=== PATIENT | male | born 1980 | race Caucasian/White ===

== ENCOUNTER 2019-03-30 09:24 | Emergency (ER) | payer OTHER ==
[~2019-03-30] VITALS: Ht 188 cm; Wt 68.0 kg
[~2019-03-30 09:24] MED LIST: BASAGLAR K100 UNIT/1 SC
[2019-03-30 10:07] LABS: BASOPHILS ABSOLUTE AUTO 0.05 K/mm3 (0.00-0.23); BASOPHILS PERCENT AUTO 1 % (0-2); EOSINOPHILS PERCENT AUTO 0 % (0-6); Hematocrit 47.7 % (37.0-53.0); Hemoglobin 16.6 g/dL (13.5-17.5); IMMATURE GRAN ABSOLUTE AUTO 0.04 K/mm3 (0.00-0.10); IMMATURE GRAN PERCENT AUTO 0 % (0-1); LYMPHOCYTES ABSOLUTE AUTO 1.33 K/mm3 (0.84-5.20); LYMPHOCYTES PERCENT AUTO 12 % (21-46); MONOCYTES ABSOLUTE AUTO 0.55 K/mm3 (0.16-1.47); MONOCYTES PERCENT AUTO 5 % (4-13); Mean Corpuscular HGB 30.1 pg (26.0-34.0); Mean Corpuscular HGB Conc 34.8 g/dL (31.5-36.5); Mean Corpuscular Volume 87 fL (80-100); Mean Platelet Volume 11.1 fL (9.1-12.4); NEUTROPHILS ABSOLUTE AUTO 8.79 K/mm3 (1.96-9.15); NEUTROPHILS PERCENT AUTO 82 % (41-73); Platelet Count 329 K/mm3 (150-400); RDW Coefficient Variation 11.9 % (11.7-14.2); RDW Standard Deviation 38.2 fL (35.1-46.3); Red Blood Cell Count 5.51 M/mm3 (4.30-5.90); White Blood Cell Count 10.76 K/mm3 (4.00-11.30)
[2019-03-30 10:22] LABS: Alanine Aminotransfer (ALT/SGP 37 U/L (12-78); Albumin, Blood 3.7 g/dL (3.4-5.0); Albumin/Globulin Ratio 0.9 (0.8-1.8); Alk Phos 113 U/L (50-136); Anion Gap 16 mmol/L (6-16); Aspartate Aminotrans (AST/SGOT 13 U/L (12-37); Bilirubin, Total 0.7 mg/dL (0.1-1.0); Blood Urea Nitrogen 23 mg/dL (8-24); Bun/Creatinine Ratio 29.3 (12.0-20.0); CO2, Blood 23 mmol/L (21-32); Chloride, Blood 89 mmol/L (98-108); Creatinine, Blood 0.79 mg/dL (0.60-1.20); Globulin, Blood 4.1 g/dL (2.2-4.0); Glomerular Filtration Rate >60 (60-); Glucose, Blood 292 mg/dL (70-99); Potassium, Blood 4.4 mmol/L (3.5-5.5); Sodium, Blood 128 mmol/L (136-145); Total Protein, Blood 7.8 g/dL (6.4-8.2)
[2019-03-30 11:23] LABS: Base Excess Venous 1.4 mmol/L; PCO2 Venous 42.6 mmHg (38-42); PO2 Venous 50.9 mmHg (38-42)
[2019-03-30] MEDS ORDERED: PROM25 PO (11:49)
[2019-03-30 12:34] LABS: Source, Urine Clean Catch
[2019-03-30 12:42] LABS: Bilirubin, Urine Neg (Neg); Blood, Urine Neg (Neg); Glucose Qualitative, Urine 4+ (Neg); Ketones, Urine 4+ (Neg); Leukocyte Esterase, Urine Neg (Neg); Nitrite, Urine Neg (Neg); Protein, Urine 1+ (Neg); Specific Gravity, Urine 1.025 (1.003-1.022); Urobilinogen, Urine NORM (Normal)
[2019-03-30 12:56] LABS: Appearance, Urine Clear (Clear); Color, Urine Yellow (P-Yellow)
== END 2019-03-30 15:35 | disposition home or self-care (01) ==
LOC: ER 09:24
PROVIDERS: Emergency Medicine; Physician Assistant
DX: R11.2 Nausea with vomiting, unspecified (principal); E11.9 Type 2 diabetes mellitus without complications; F17.200 Nicotine dependence, unspecified, uncomplicated; Z79.4 Long term (current) use of insulin
CPT/HCPCS: 36415; 80053; 82803; 82947; 83690; 85025; 96361; 96374; 96375; 99283-25; J0780; J1630; J2405; J2550; J7030

== ENCOUNTER 2020-10-24 15:12 | Emergency (ER) | payer OTHER ==
[~2020-10-24] VITALS: Ht 190.5 cm; Wt 81.7 kg
[~2020-10-24 15:12] MED LIST changes: +PROM25 PO
[2020-10-24 16:36] LABS: BASOPHILS ABSOLUTE AUTO 0.05 K/mm3 (0.00-0.23); BASOPHILS PERCENT AUTO 1 % (0-2); EOSINOPHILS ABSOLUTE AUTO 0.01 K/mm3 (0.00-0.68); EOSINOPHILS PERCENT AUTO 0 % (0-6); Hematocrit 42.7 % (37.0-53.0); Hemoglobin 14.4 g/dL (13.5-17.5); IMMATURE GRAN ABSOLUTE AUTO 0.02 K/mm3 (0.00-0.10); IMMATURE GRAN PERCENT AUTO 0 % (0-1); LYMPHOCYTES ABSOLUTE AUTO 1.44 K/mm3 (0.84-5.20); LYMPHOCYTES PERCENT AUTO 13 % (21-46); MONOCYTES ABSOLUTE AUTO 0.34 K/mm3 (0.16-1.47); MONOCYTES PERCENT AUTO 3 % (4-13); Mean Corpuscular HGB 29.6 pg (26.0-34.0); Mean Corpuscular HGB Conc 33.7 g/dL (31.5-36.5); Mean Corpuscular Volume 88 fL (80-100); Mean Platelet Volume 11.8 fL (9.1-12.4); NEUTROPHILS ABSOLUTE AUTO 8.85 K/mm3 (1.96-9.15); NEUTROPHILS PERCENT AUTO 83 % (41-73); Platelet Count 314 K/mm3 (150-400); RDW Coefficient Variation 12.1 % (11.7-14.2); RDW Standard Deviation 39.2 fL (35.1-46.3); Red Blood Cell Count 4.87 M/mm3 (4.30-5.90); White Blood Cell Count 10.71 K/mm3 (4.00-11.30)
[2020-10-24 16:50] LABS: Alanine Aminotransfer (ALT/SGP 31 U/L (12-78); Albumin, Blood 3.5 g/dL (3.4-5.0); Albumin/Globulin Ratio 0.9 (0.8-1.8); Alk Phos 92 U/L (50-136); Anion Gap 6 mmol/L (6-16); Aspartate Aminotrans (AST/SGOT 22 U/L (12-37); Bilirubin, Total 0.6 mg/dL (0.1-1.0); Blood Urea Nitrogen 17 mg/dL (8-24); Bun/Creatinine Ratio 16.7 (12.0-20.0); CO2, Blood 27 mmol/L (21-32); Calcium, Blood 8.6 mg/dL (8.5-10.1); Chloride, Blood 107 mmol/L (98-108); Creatinine, Blood 1.02 mg/dL (0.60-1.20); Globulin, Blood 3.9 g/dL (2.2-4.0); Glomerular Filtration Rate >60 (60-); Glucose, Blood 205 mg/dL (70-99); Potassium, Blood 3.7 mmol/L (3.5-5.5); Sodium, Blood 140 mmol/L (136-145); Total Protein, Blood 7.4 g/dL (6.4-8.2)
[2020-10-24] MEDS ORDERED: DICY20 PO (19:18)
[2020-10-24] MEDS ORDERED: ONDA4ODT MM (19:18)
== END 2020-10-24 20:51 | disposition home or self-care (01) ==
LOC: ER 15:12
PROVIDERS: Physician Assistant
DX: K52.9 Noninfective gastroenteritis and colitis, unspecified (principal); E11.9 Type 2 diabetes mellitus without complications; F17.200 Nicotine dependence, unspecified, uncomplicated; Z79.4 Long term (current) use of insulin; Z88.8 Allergy status to other drugs, medicaments and biological substances
CPT/HCPCS: 74177; 80053; 82947; 83690; 85025; 96374-59; 96375; 99284-25; A9270; J0780; J1200; J2405; J3010; J7030; Q9967

== ENCOUNTER → 2020-12-19 | Outpatient (CLI) | payer OTHER ==
[~2020-12-19] MED LIST changes: +DICY20 PO; +ONDA4ODT MM
[2020-12-19 11:14] LABS: BASOPHILS ABSOLUTE AUTO 0.06 K/mm3 (0.00-0.23); BASOPHILS PERCENT AUTO 1 % (0-2); EOSINOPHILS ABSOLUTE AUTO 0.05 K/mm3 (0.00-0.68); EOSINOPHILS PERCENT AUTO 1 % (0-6); Hematocrit 50.4 % (37.0-53.0); Hemoglobin 17.6 g/dL (13.5-17.5); IMMATURE GRAN ABSOLUTE AUTO 0.02 K/mm3 (0.00-0.10); IMMATURE GRAN PERCENT AUTO 0 % (0-1); LYMPHOCYTES ABSOLUTE AUTO 2.31 K/mm3 (0.84-5.20); LYMPHOCYTES PERCENT AUTO 24 % (21-46); MONOCYTES ABSOLUTE AUTO 0.76 K/mm3 (0.16-1.47); MONOCYTES PERCENT AUTO 8 % (4-13); Mean Corpuscular HGB 30.4 pg (26.0-34.0); Mean Corpuscular HGB Conc 34.9 g/dL (31.5-36.5); Mean Corpuscular Volume 87 fL (80-100); Mean Platelet Volume 10.6 fL (9.1-12.4); NEUTROPHILS PERCENT AUTO 67 % (41-73); Platelet Count 371 K/mm3 (150-400); RDW Coefficient Variation 12.6 % (11.7-14.2); RDW Standard Deviation 39.9 fL (35.1-46.3); Red Blood Cell Count 5.78 M/mm3 (4.30-5.90)
[2020-12-19 11:24] LABS: Alanine Aminotransfer (ALT/SGP 24 U/L (12-78); Albumin, Blood 3.6 g/dL (3.4-5.0); Albumin/Globulin Ratio 0.9 (0.8-1.8); Alk Phos 89 U/L (40-126); Anion Gap 7 mmol/L (6-16); Aspartate Aminotrans (AST/SGOT 11 U/L (12-37); Bilirubin, Total 0.7 mg/dL (0.1-1.0); Blood Urea Nitrogen 12 mg/dL (8-24); Bun/Creatinine Ratio 9.8 (12.0-20.0); CO2, Blood 31 mmol/L (21-32); Calcium, Blood 8.7 mg/dL (8.5-10.1); Chloride, Blood 95 mmol/L (98-108); Creatinine, Blood 1.23 mg/dL (0.60-1.20); Glomerular Filtration Rate >60 (60-); Glucose, Blood 161 mg/dL (70-99); Potassium, Blood 4.8 mmol/L (3.5-5.5); Sodium, Blood 133 mmol/L (136-145); Total Protein, Blood 7.6 g/dL (6.4-8.2)
== END | disposition home or self-care (01) ==
LOC: LAB SHORT 11:09 → LAB 11:09
PROVIDERS: Physician Assistant Medical
DX: R11.2 Nausea with vomiting, unspecified (principal)
CPT/HCPCS: 80053; 83690; 85025

== ENCOUNTER 2021-02-04 13:26 | Emergency (ER) | payer OTHER ==
[~2021-02-04] VITALS: Ht 190.5 cm; Wt 81.7 kg
[~2021-02-04 13:26] MED LIST changes: -ASPI81CH PO; -FAMO20; -METO10 PO; -SEMGLEE PE100 UNIT/1; -Simvastatin20 MG PO
[2021-02-04] MEDS ORDERED: SEMGLEE PE100 UNIT/1 (13:53)
[2021-02-04] MEDS ORDERED: Simvastatin20 MG PO (13:54)
[2021-02-04] MEDS ORDERED: ASPI81CH PO (13:54)
[2021-02-04] MEDS ORDERED: FAMO20 (13:55)
[2021-02-04] MEDS ORDERED: METO10 PO (16:04)
[2021-02-04] MEDS ORDERED: ONDA4ODT MM (16:04)
== END 2021-02-04 16:48 | disposition home or self-care (01) ==
LOC: ER 13:26
DX: R11.2 Nausea with vomiting, unspecified (principal); E11.9 Type 2 diabetes mellitus without complications; K21.9 Gastro-esophageal reflux disease without esophagitis; F17.200 Nicotine dependence, unspecified, uncomplicated; Z79.899 Other long term (current) drug therapy; Z79.4 Long term (current) use of insulin; Z79.82 Long term (current) use of aspirin
CPT/HCPCS: 82947; 96374; 99285-25; J2765

== ENCOUNTER → 2021-02-04 | Outpatient (CLI) | payer OTHER ==
[~2021-02-04] MED LIST changes: +ASPI81CH PO; +FAMO20; +METO10 PO; +SEMGLEE PE100 UNIT/1; +Simvastatin20 MG PO
[2021-02-04 12:38] LABS: BASOPHILS ABSOLUTE AUTO 0.06 K/mm3 (0.00-0.23); BASOPHILS PERCENT AUTO 0 % (0-2); EOSINOPHILS ABSOLUTE AUTO 0.02 K/mm3 (0.00-0.68); EOSINOPHILS PERCENT AUTO 0 % (0-6); Hemoglobin 16.6 g/dL (13.5-17.5); IMMATURE GRAN ABSOLUTE AUTO 0.16 K/mm3 (0.00-0.10); IMMATURE GRAN PERCENT AUTO 1 % (0-1); LYMPHOCYTES ABSOLUTE AUTO 1.33 K/mm3 (0.84-5.20); LYMPHOCYTES PERCENT AUTO 6 % (21-46); MONOCYTES ABSOLUTE AUTO 1.14 K/mm3 (0.16-1.47); MONOCYTES PERCENT AUTO 5 % (4-13); Mean Corpuscular HGB 30.9 pg (26.0-34.0); Mean Corpuscular HGB Conc 35.3 g/dL (31.5-36.5); Mean Corpuscular Volume 87 fL (80-100); Mean Platelet Volume 11.3 fL (9.1-12.4); NEUTROPHILS ABSOLUTE AUTO 20.09 K/mm3 (1.96-9.15); NEUTROPHILS PERCENT AUTO 88 % (41-73); Platelet Count 338 K/mm3 (150-400); RDW Coefficient Variation 12.9 % (11.7-14.2); Red Blood Cell Count 5.38 M/mm3 (4.30-5.90)
[2021-02-04 13:05] LABS: Alanine Aminotransfer (ALT/SGP 42 U/L (12-78); Albumin, Blood 4.3 g/dL (3.4-5.0); Albumin/Globulin Ratio 1.2 (0.8-1.8); Alk Phos 106 U/L (40-126); Amylase, Blood 38 U/L (25-115); Anion Gap 13 mmol/L (6-16); Aspartate Aminotrans (AST/SGOT 13 U/L (12-37); Bilirubin, Total 0.5 mg/dL (0.1-1.0); Blood Urea Nitrogen 19 mg/dL (8-24); Bun/Creatinine Ratio 17.3 (12.0-20.0); CO2, Blood 31 mmol/L (21-32); Calcium, Blood 9.9 mg/dL (8.5-10.1); Chloride, Blood 99 mmol/L (98-108); Globulin, Blood 3.7 g/dL (2.2-4.0); Glomerular Filtration Rate >60 (60-); Glucose, Blood 293 mg/dL (70-99); Potassium, Blood 3.5 mmol/L (3.5-5.5); Sodium, Blood 143 mmol/L (136-145)
== END ==
LOC: LAB SHORT 12:34
PROVIDERS: General Practice
DX: E11.9 Type 2 diabetes mellitus without complications (principal); R11.2 Nausea with vomiting, unspecified; Z79.4 Long term (current) use of insulin
CPT/HCPCS: 80053; 82150; 85025

== ENCOUNTER 2022-11-22 11:18 | Day surgery (SDC) | payer OTHER ==
[~2022-11-22] VITALS: Ht 190.5 cm; Wt 77.8 kg
[~2022-11-22 11:18] MED LIST changes: +ASPI81CH PO; +FAMO20; +METO10 PO; +SEMGLEE PE100 UNIT/1; +Simvastatin20 MG PO
[2022-11-22 13:47] VITALS: BP 123/90
== END 2022-11-22 13:50 | disposition home or self-care (01) ==
LOC: ORSCSDS 11:18
PROVIDERS: Internal Medicine Gastroenterology
PROC: 0DB78ZX Excision of Stomach, Pylorus, Via Natural or Artificial Opening Endoscopic, Diagnostic (ICD-10-PCS; principal; 2022-11-22 13:00)
PROC: 0DBN8ZX Excision of Sigmoid Colon, Via Natural or Artificial Opening Endoscopic, Diagnostic (ICD-10-PCS; principal; 2022-11-22 13:00)
PROC: 0DB98ZX Excision of Duodenum, Via Natural or Artificial Opening Endoscopic, Diagnostic (ICD-10-PCS; principal; 2022-11-22 13:00)
DX: K62.5 Hemorrhage of anus and rectum (principal); K59.00 Constipation, unspecified; R10.13 Epigastric pain; D12.5 Benign neoplasm of sigmoid colon; K64.4 Residual hemorrhoidal skin tags; K29.70 Gastritis, unspecified, without bleeding; B96.81 Helicobacter pylori [H. pylori] as the cause of diseases classified elsewhere; E10.9 Type 1 diabetes mellitus without complications; K21.9 Gastro-esophageal reflux disease without esophagitis; F17.210 Nicotine dependence, cigarettes, uncomplicated; Z79.4 Long term (current) use of insulin; Z79.899 Other long term (current) drug therapy
CPT/HCPCS: 82947; 88305; 88342; J2250; J2704; J7120

== ENCOUNTER 2023-01-30 11:43 | Inpatient (IN) | payer OTHER ==
[~2023-01-30] VITALS: Ht 165.1 cm; Wt 72.6 kg
[2023-01-30] VITALS (12 sets, daily range): BP systolic 106–133; BP diastolic 61–77
[2023-01-30 12:09] LABS: Base Excess Venous -8.2 mmol/L; Bicarbonate Venous 18.4 mmol/L (24.0-30.0); PCO2 Venous 35.5 mmHg (38-42); pH Blood Venous 7.31 (7.34-7.37)
[2023-01-30 12:28] LABS: BASOPHILS PERCENT MAN 0 % (0-2); EOSINOPHILS PERCENT MAN 1 % (0-6); LYMPHOCYTES PERCENT MAN 2 % (21-46); MONOCYTES PERCENT MAN 3 % (4-13); SEG NEUTROPHILS PERCENT MAN 94 % (41-73); TOTAL CELLS COUNTED 100
[2023-01-30 13:13] LABS: BASOPHILS PERCENT AUTO 1 % (0-2); Hematocrit 42.8 % (37.0-53.0); Hemoglobin 14.6 g/dL (13.5-17.5); LYMPHOCYTES ABSOLUTE AUTO 0.72 K/mm3 (0.84-5.20); LYMPHOCYTES ABSOLUTE MAN 0.41 K/mm3 (0.84-5.20); LYMPHOCYTES PERCENT AUTO 4 % (21-46); MONOCYTES ABSOLUTE AUTO 0.69 K/mm3 (0.16-1.47); MONOCYTES ABSOLUTE MAN 0.61 K/mm3 (0.16-1.47); MONOCYTES PERCENT AUTO 3 % (4-13); Mean Corpuscular HGB 30.7 pg (26.0-34.0); Mean Corpuscular HGB Conc 34.1 g/dL (31.5-36.5); Mean Corpuscular Volume 90 fL (80-100); Mean Platelet Volume 11.8 fL (9.1-12.4); NEUTROPHILS ABSOLUTE MAN 19.39 K/mm3 (1.96-9.15); Platelet Count 365 K/mm3 (150-400); RDW Coefficient Variation 12.3 % (11.7-14.2); RDW Standard Deviation 41.2 fL (35.1-46.3); Red Blood Cell Count 4.75 M/mm3 (4.30-5.90); White Blood Cell Count 20.63 K/mm3 (4.00-11.30)
[2023-01-30 13:14] LABS: EOSINOPHILS ABSOLUTE AUTO 10.11 K/mm3 (0.00-0.68); EOSINOPHILS PERCENT AUTO 49 % (0-6); IMMATURE GRAN ABSOLUTE AUTO 0.03 K/mm3 (0.00-0.10); IMMATURE GRAN PERCENT AUTO 0 % (0-1); NEUTROPHILS ABSOLUTE AUTO 8.98 K/mm3 (1.96-9.15); NEUTROPHILS PERCENT AUTO 44 % (41-73)
[2023-01-30 13:20] LABS: U Amphetamine Screen DETECTED; U Barbituate Screen Not Detected; U Benzodiazapine Screen Not Detected; U Buprenorphine Screen Not Detected; U Cannabinoids Screen Not Detected; U Cocaine Screen Not Detected; U Methadone Screen Not Detected; U Methamphetamine Screen DETECTED; U Opiates Screen Not Detected; U Oxycodone Screen Not Detected; U Phencyclidine Screen Not Detected
[2023-01-30 13:45] LABS: Albumin, Blood 3.6 g/dL (3.4-5.0); Albumin/Globulin Ratio 0.9 (0.8-1.8); Beta-hydroxybutyrate 82.5 mg/dL (0.2-2.8); Bilirubin, Total 0.7 mg/dL (0.1-1.0); Bun/Creatinine Ratio 30.9 (12.0-20.0); Calcium, Blood 9.1 mg/dL (8.5-10.1); Creatinine, Blood 1.23 mg/dL (0.60-1.20); Globulin, Blood 3.8 g/dL (2.2-4.0); Potassium, Blood 5.8 mmol/L (3.5-5.5); Total Protein, Blood 7.4 g/dL (6.4-8.2)
--- NOTE | 2023-01-30 16:08 | NUR ---
ARRIVAL TO ICU PT BROUGHT TO ICU 14 AT THIS TIME. HE IS RECEIVING INSULIN 3UNITS/HR. PT SOMNOLENT BUT WAKENS TO VERBAL STIMULI. HE IS ABLE TO NOD/SHAKE HEAD, MINIMALLY ANSWER QUESTIONS, AND FOLLOW SIMPLE COMMANDS. PT APPROVES MOTHER LASHA TO BE AT BEDSIDE AND TO OBTAIN INFORMATION FROM HER. PT'S MOTHER, LASHA, STS PT HAS NEVER BEEN ADMITTED FOR DKA. HE WAS DIAGNOSED WITH TYPE 2 DIABETES AT AGE 32 AND HAS BEEN USING INSULIN SINCE. SHE IS UNAWARE OF HIS INSULIN DOSING BUT STS HE HAS BEEN SEEING AN LACE AND TEXTILES RESTORER AND THEY RECENTLY MADE CHANGES TO HIS INSULIN DOSING IN THE LAST TWO MONTHS. SHE ALSO STS HE HAS RECENTLY STARTED USING A CONTINUOUS GLUCOSE MONITOR AND THERE HAS BEEN PRIOR DISCUSSION REGARDING AN INSULIN PUMP. PT HAS NOT VOIDED. BLADDER SCAN SHOWS 803ML. PT WAKENS AND STANDS AT BEDSIDE, VOIDS 950ML PALE YELLOW URINE. SINUS TACH ON MONITOR WITH RATE IN 110S-120S WHILE SLEEPING, 130S-140S WHILE STANDING. BP STABLE. BED ALARM ON, CALL LIGHT WITHIN REACH.
[2023-01-30 16:22] LABS: Albumin, Blood 3.5 g/dL (3.4-5.0); Anion Gap 23 mmol/L (6-16); Blood Urea Nitrogen 39 mg/dL (8-24); CO2, Blood 15 mmol/L (21-32); Calcium, Blood 8.5 mg/dL (8.5-10.1); Chloride, Blood 97 mmol/L (98-108); Creatinine, Blood 1.26 mg/dL (0.60-1.20); Glomerular Filtration Rate 73 (60-); Glucose, Blood 614 mg/dL (70-99); Phosphorus, Blood 6.5 mg/dL (2.5-4.9); Potassium, Blood 5.8 mmol/L (3.5-5.5); Sodium, Blood 135 mmol/L (136-145)
[2023-01-30 16:22] LABS: Glucose, Blood 626 mg/dL (70-99)
[2023-01-30] MEDS ORDERED: INSULIN LI100 UNIT/6 SC (16:33)
[2023-01-30 17:40] LABS: Glucose, Blood 586 mg/dL (70-99)
[2023-01-30 18:38] LABS: Glucose, Blood 491 mg/dL (70-99)
[2023-01-30 20:11] LABS: Albumin, Blood 3.1 g/dL (3.4-5.0); Anion Gap 12 mmol/L (6-16); Blood Urea Nitrogen 41 mg/dL (8-24); Bun/Creatinine Ratio 28.3 (12.0-20.0); CO2, Blood 20 mmol/L (21-32); Calcium, Blood 8.1 mg/dL (8.5-10.1); Chloride, Blood 106 mmol/L (98-108); Creatinine, Blood 1.45 mg/dL (0.60-1.20); Glomerular Filtration Rate 62 (60-); Glucose, Blood 424 mg/dL (70-99); Phosphorus, Blood 4.5 mg/dL (2.5-4.9); Potassium, Blood 4.7 mmol/L (3.5-5.5); Sodium, Blood 138 mmol/L (136-145)
[2023-01-30 23:51] LABS: Anion Gap 6 mmol/L (6-16); Blood Urea Nitrogen 37 mg/dL (8-24); CO2, Blood 24 mmol/L (21-32); Calcium, Blood 7.9 mg/dL (8.5-10.1); Chloride, Blood 110 mmol/L (98-108); Creatinine, Blood 1.32 mg/dL (0.60-1.20); Glomerular Filtration Rate 69 (60-); Glucose, Blood 306 mg/dL (70-99); Phosphorus, Blood 3.7 mg/dL (2.5-4.9); Potassium, Blood 4.4 mmol/L (3.5-5.5); Sodium, Blood 140 mmol/L (136-145)
[2023-01-31] VITALS (13 sets, daily range): BP systolic 91–161; BP diastolic 54–97
[2023-01-31 03:20] LABS: BASOPHILS ABSOLUTE AUTO 0.08 K/mm3 (0.00-0.23); BASOPHILS PERCENT AUTO 0 % (0-2); EOSINOPHILS PERCENT AUTO 0 % (0-6); Hemoglobin 13.5 g/dL (13.5-17.5); IMMATURE GRAN PERCENT AUTO 1 % (0-1); LYMPHOCYTES ABSOLUTE AUTO 3.06 K/mm3 (0.84-5.20); LYMPHOCYTES PERCENT AUTO 15 % (21-46); MONOCYTES ABSOLUTE AUTO 2.53 K/mm3 (0.16-1.47); MONOCYTES PERCENT AUTO 12 % (4-13); Mean Corpuscular HGB 30.1 pg (26.0-34.0); Mean Corpuscular HGB Conc 33.8 g/dL (31.5-36.5); Mean Corpuscular Volume 89 fL (80-100); Mean Platelet Volume 11.2 fL (9.1-12.4); NEUTROPHILS ABSOLUTE AUTO 14.56 K/mm3 (1.96-9.15); NEUTROPHILS PERCENT AUTO 72 % (41-73); Platelet Count 335 K/mm3 (150-400); RDW Coefficient Variation 12.6 % (11.7-14.2); RDW Standard Deviation 41.3 fL (35.1-46.3); Red Blood Cell Count 4.49 M/mm3 (4.30-5.90); White Blood Cell Count 20.33 K/mm3 (4.00-11.30)
[2023-01-31 03:37] LABS: International Normalized Ratio 1.07; Prothrombin Time Results 11.2 Sec (9.7-11.5)
[2023-01-31 03:51] LABS: Albumin/Globulin Ratio 0.8 (0.8-1.8); Bilirubin, Total 0.4 mg/dL (0.1-1.0); Bun/Creatinine Ratio 28.8 (12.0-20.0); Calcium, Blood 7.7 mg/dL (8.5-10.1); Creatinine, Blood 1.18 mg/dL (0.60-1.20); Globulin, Blood 3.8 g/dL (2.2-4.0); Magnesium, Blood 2.2 mg/dL (1.6-2.4); Potassium, Blood 4.8 mmol/L (3.5-5.5); Total Protein, Blood 6.8 g/dL (6.4-8.2)
--- NOTE | 2023-01-31 06:04 | NUR ---
SHIFT SUMMARY: NO ACUTE CHANGES OVERNIGHT. PT OFF OF INSULIN DRIP @ 0400 AND TRANSITIONED TO SUBCUTANEOUS INSULIN; CBG AROUND 160'S. PT HAS NOT BEEN N/V FOR THE WHOLE NIGHT BUT AT 0600 PT REPORTED NAUSEA AND MEDICATED WITH ZOFRAN PER EMAR. PT HAS BEEN SLEEING FOR THE MAJORITY OF THE SHIFT BUT WAKES TO VERBAL STIMULI, FOLLOWS SIMPLE DIRECTIONS AND IS ANSWERING SOME QUESTIONS; AT THIS TIME PT A&O X 3, HAS SOME DIFFICULTY RECALLING THE SITUATION THAT LEAD TO ADMISSION BUT ONCE TOLD SOME OF THE STORY THE PT STARTS TO REMEMBER. PT ON RA, SPO2 99< AND DENIES SOB. SR-ST WITH HR 90-110, SBP 120-140'S; CONTINUOUS CATERING SOUS CHEF IN PLACE. PT DIET ADVANCED TO ADA DIET BUT PT HAS DECLINED FOOD AT THIS TIME. PT USING URINAL IN BED INDEPENDENTLY; VOIDED ONCE THIS SHIFT WITH 600 ML OUTPUT. PT REPOSITIONING IN BED INDEPENDENTLY THROUGHOUT THE SHIFT. PIV TO BILATERALLY AC'S THAT ARE SALINE LOCKED. WILL REPORT OFF TO ONCOMING RN.
[2023-01-31 08:31] LABS: Albumin, Blood 3.2 g/dL (3.4-5.0); Anion Gap 8 mmol/L (6-16); Blood Urea Nitrogen 31 mg/dL (8-24); Bun/Creatinine Ratio 27.4 (12.0-20.0); CO2, Blood 26 mmol/L (21-32); Chloride, Blood 108 mmol/L (98-108); Creatinine, Blood 1.13 mg/dL (0.60-1.20); Glomerular Filtration Rate 83 (60-); Glucose, Blood 152 mg/dL (70-99); Phosphorus, Blood 3.8 mg/dL (2.5-4.9); Potassium, Blood 4.4 mmol/L (3.5-5.5); Sodium, Blood 142 mmol/L (136-145)
[2023-01-31 12:13] LABS: Albumin, Blood 3.3 g/dL (3.4-5.0); Anion Gap 9 mmol/L (6-16); Blood Urea Nitrogen 31 mg/dL (8-24); Bun/Creatinine Ratio 28.7 (12.0-20.0); CO2, Blood 24 mmol/L (21-32); Calcium, Blood 8.2 mg/dL (8.5-10.1); Chloride, Blood 105 mmol/L (98-108); Creatinine, Blood 1.08 mg/dL (0.60-1.20); Glomerular Filtration Rate 88 (60-); Glucose, Blood 273 mg/dL (70-99); Phosphorus, Blood 3.3 mg/dL (2.5-4.9); Potassium, Blood 4.9 mmol/L (3.5-5.5); Sodium, Blood 138 mmol/L (136-145)
--- NOTE | 2023-01-31 16:00 | NUR ---
TRANSFER TO MEDICAL PT MEDICAL W/ TELEMETRY STATUS. SLEEPING MAJORITY OF SHIFT. PT WAKES TO VERBAL STIMULI, ANSWERS Qs APPROPRIATELY BUT KEEPS EYES CLOSED WHILE ANSWERING Qs. PT SOMETIMES OPENS EYES SPONTANEOUSLY. PT VSS. SPO2 > 92% ON RA. MONITOR SHOWING SR-ST, HR 80s-110s. PT DENIES PAIN/DISCOMFORT BUT REPORTING NAUSEA T/O SHIFT & EPISODE OF EMESIS THIS AM. PT BEING MEDICATED W/ PRN IV ZOFRAN & PO PHENERGAN PER EMAR W/ NO FURTHER EMESIS & REPORT OF IMPROVEMENT IN NAUSEA. PT DRINKING WATER BUT REFUSING MEALS. CBGs MD FRANCOIS W/ CHANGE FROM S INSULIN COVERAGE TO JASON. PT 1 PERSON ASSIST. REPORT CALLED TO ACCEPTING MEDICAL FLOOR RN. PT TAKEN TO RM 364 BY PCT IN WHEELCHAIR @ APPROX 1600.
--- NOTE | 2023-01-31 16:57 | NUR ---
PT AOX3 STILL VERY NAUSEATED, PT WAS TREATED PER EMAR. PT SLEEPING IN BED AT THIS TIME. ABLE TO BE AROUSED WHEN SPOKE TO. CALL LIGHT IS WITHIN REACH. TELE IS ST @ 101 PER CALKER. WILL CONTINUE TO MONITOR.
[2023-02-01 04:08] VITALS: BP 155/93
[2023-02-01 05:03] LABS: BASOPHILS ABSOLUTE AUTO 0.09 K/mm3 (0.00-0.23); BASOPHILS PERCENT AUTO 1 % (0-2); EOSINOPHILS PERCENT AUTO 0 % (0-6); Hematocrit 40.4 % (37.0-53.0); Hemoglobin 13.8 g/dL (13.5-17.5); IMMATURE GRAN ABSOLUTE AUTO 0.05 K/mm3 (0.00-0.10); IMMATURE GRAN PERCENT AUTO 0 % (0-1); LYMPHOCYTES ABSOLUTE AUTO 2.23 K/mm3 (0.84-5.20); LYMPHOCYTES PERCENT AUTO 16 % (21-46); MONOCYTES ABSOLUTE AUTO 1.11 K/mm3 (0.16-1.47); MONOCYTES PERCENT AUTO 8 % (4-13); Mean Corpuscular HGB 30.5 pg (26.0-34.0); Mean Corpuscular HGB Conc 34.2 g/dL (31.5-36.5); Mean Corpuscular Volume 89 fL (80-100); Mean Platelet Volume 11.1 fL (9.1-12.4); NEUTROPHILS ABSOLUTE AUTO 10.73 K/mm3 (1.96-9.15); NEUTROPHILS PERCENT AUTO 76 % (41-73); Platelet Count 280 K/mm3 (150-400); RDW Coefficient Variation 12.3 % (11.7-14.2); RDW Standard Deviation 40.6 fL (35.1-46.3); Red Blood Cell Count 4.53 M/mm3 (4.30-5.90); White Blood Cell Count 14.21 K/mm3 (4.00-11.30)
[2023-02-01 05:50] LABS: Albumin, Blood 3.2 g/dL (3.4-5.0); Anion Gap 4 mmol/L (6-16); Blood Urea Nitrogen 18 mg/dL (8-24); CO2, Blood 31 mmol/L (21-32); Calcium, Blood 8.1 mg/dL (8.5-10.1); Chloride, Blood 101 mmol/L (98-108); Glomerular Filtration Rate 96 (60-); Glucose, Blood 188 mg/dL (70-99); Phosphorus, Blood 2.8 mg/dL (2.5-4.9); Potassium, Blood 4.1 mmol/L (3.5-5.5); Sodium, Blood 136 mmol/L (136-145)
--- NOTE | 2023-02-01 06:08 | NUR ---
SHIFT SUMMARY: PT IS ADMITTED FOR DKA AND IS A FULL CODE. HE IS ALERT AND ABLE TO MAKE NEEDS KNOWN. 1P MIN TO STBY DEPENDING ON ACTIVITY. HE HAD A SHOWER PER HIS REQUEST. DENIES PAIN OR DISCOMFORT WHEN ASKED. IVs TO BI LAT ARMS ARE PATENT AND HAVE DRESSINGS THAT ARE CDI. MARY REPORTS SINUS @ 92. HAD EMESIS X1 AND WAS GIVEN PRN FOR IT.
[2023-02-01 07:33] VITALS: BP 169/96
[2023-02-01 16:28] VITALS: BP 140/96
--- NOTE | 2023-02-01 19:06 | NUR ---
SHIFT SUMMARY: FRANCISCO IS A&OX4. VSS, NO ACUTE EVENTS OVERNIGHT. HE REPORTS THAT THE COMPAZINE HAS BEEN EFFECTIVE AT STOPPING THE HICCUPS. HE WAS ABLE TO TOLERATE A FEW BITES OF ORAL INTAKE. HE IS INDEPENDENT IN THE ROOM, DENIES ANY DIFFICULTY URINATING AND DENIES PAIN. BILATERAL IV'S PATENT. HE IS LYING IN BED WITH THE CALL LIGHT IN REACH. REPORT WAS GIVEN TO AUTOCUTTER RN.
[2023-02-01 20:12] VITALS: BP 155/104
--- NOTE | 2023-02-01 22:32 | NUR ---
PT LEFT AMA ABOUT 2209 WITH BELONGINGS IN A SMALL BAG. HE STATED THAT HE NEEDED TO GO HOME AND TAKE CARE OF HIS DOG. HE SIGNED THE AMA PAPERWORK AND LEFT AFTER BEING ENCOURAGED BY THIS NURSE TO STAY UNTIL MORNING AND TALK WITH MD ABOUT DISCHARGE AND IF NEEDING FURTHER TREATMENT.
== END 2023-02-01 22:09 | disposition left against medical advice (07) | DRG 638 ==
LOC: ER 11:43 → ICUE 11:44 → ER 15:35 → ICUE 15:35 → MEDS 01-31 16:01
PROVIDERS: Emergency Medicine; Student in an Organized Health Care Education/Training Program; ADMIT Family Medicine
DX: E11.10 Type 2 diabetes mellitus with ketoacidosis without coma (principal); N17.9 Acute kidney failure, unspecified; F15.10 Other stimulant abuse, uncomplicated; K21.9 Gastro-esophageal reflux disease without esophagitis; E86.0 Dehydration; E87.5 Hyperkalemia; F17.200 Nicotine dependence, unspecified, uncomplicated; E78.5 Hyperlipidemia, unspecified; D72.829 Elevated white blood cell count, unspecified; Z53.29 Procedure and treatment not carried out because of patient's decision for other reasons; Z71.6 Tobacco abuse counseling; Z88.8 Allergy status to other drugs, medicaments and biological substances; Z79.4 Long term (current) use of insulin
CPT/HCPCS: 36415; 80053; 80069; 82010; 82803; 82947; 83735; 84100; 85025; 85610; 96361; 96372; 96374; 96375; 96376; 99285-25; A9270; G0378; J0780; J1200; J1644; J1815; J2405; J7030; Q0164

== ENCOUNTER 2023-02-05 17:24 | Emergency (ER) | payer OTHER ==
[~2023-02-05] VITALS: Ht 190.5 cm; Wt 70.8 kg
[~2023-02-05 17:24] MED LIST changes: +INSULIN LI100 UNIT/6 SC
[2023-02-05 17:55] VITALS: BP 101/74
[2023-02-05 18:32] LABS: BASOPHILS ABSOLUTE AUTO 0.12 K/mm3 (0.00-0.23); BASOPHILS PERCENT AUTO 1 % (0-2); EOSINOPHILS ABSOLUTE AUTO 0.16 K/mm3 (0.00-0.68); EOSINOPHILS PERCENT AUTO 2 % (0-6); Hematocrit 46.8 % (37.0-53.0); Hemoglobin 15.8 g/dL (13.5-17.5); IMMATURE GRAN ABSOLUTE AUTO 0.02 K/mm3 (0.00-0.10); IMMATURE GRAN PERCENT AUTO 0 % (0-1); LYMPHOCYTES PERCENT AUTO 35 % (21-46); MONOCYTES ABSOLUTE AUTO 0.73 K/mm3 (0.16-1.47); MONOCYTES PERCENT AUTO 8 % (4-13); Mean Corpuscular HGB Conc 33.8 g/dL (31.5-36.5); Mean Corpuscular Volume 89 fL (80-100); Mean Platelet Volume 11.1 fL (9.1-12.4); NEUTROPHILS ABSOLUTE AUTO 5.18 K/mm3 (1.96-9.15); NEUTROPHILS PERCENT AUTO 54 % (41-73); Platelet Count 347 K/mm3 (150-400); RDW Coefficient Variation 11.8 % (11.7-14.2); Red Blood Cell Count 5.26 M/mm3 (4.30-5.90); White Blood Cell Count 9.61 K/mm3 (4.00-11.30)
[2023-02-05 18:47] LABS: Albumin, Blood 3.3 g/dL (3.4-5.0); Albumin/Globulin Ratio 0.9 (0.8-1.8); Bilirubin, Total 0.4 mg/dL (0.1-1.0); Bun/Creatinine Ratio 19.3 (12.0-20.0); Calcium, Blood 8.8 mg/dL (8.5-10.1); Creatinine, Blood 1.14 mg/dL (0.60-1.20); Globulin, Blood 3.8 g/dL (2.2-4.0); Potassium, Blood 3.7 mmol/L (3.5-5.5); Total Protein, Blood 7.1 g/dL (6.4-8.2)
== END 2023-02-05 20:15 | disposition left against medical advice (07) ==
LOC: ER 17:24
PROVIDERS: Physician Assistant
DX: H57.9 Unspecified disorder of eye and adnexa (principal); Z53.21 Procedure and treatment not carried out due to patient leaving prior to being seen by health care provider
CPT/HCPCS: 70450; 80053; 85025; 99282-25

== ENCOUNTER 2023-02-09 13:10 | Emergency (ER) | payer OTHER ==
[~2023-02-09] VITALS: Ht 190.5 cm; Wt 72.6 kg
[2023-02-09 13:24] VITALS: BP 110/74
== END 2023-02-09 15:45 | disposition home or self-care (01) ==
LOC: ER 13:10
DX: F15.10 Other stimulant abuse, uncomplicated (principal); R45.1 Restlessness and agitation; Z91.148 Patient's other noncompliance with medication regimen for other reason; E11.9 Type 2 diabetes mellitus without complications; K21.9 Gastro-esophageal reflux disease without esophagitis; E78.5 Hyperlipidemia, unspecified; F17.200 Nicotine dependence, unspecified, uncomplicated; Z79.4 Long term (current) use of insulin; Z88.8 Allergy status to other drugs, medicaments and biological substances
CPT/HCPCS: 82947; 99284

== ENCOUNTER → 2024-02-26 | Outpatient (CLI) | payer OTHER ==
[2024-02-27 13:40] LABS: Chlamydia Trachomatis Urine NOT DETECTED (NOT DETECT); Neisseria Gonorrhoea Urine NOT DETECTED (NOT DETECT)
== END ==
LOC: LAB SHORT 15:19 → LAB 15:19
PROVIDERS: Family Medicine
DX: Z20.2 Contact with and (suspected) exposure to infections with a predominantly sexual mode of transmission (principal)
CPT/HCPCS: 87491; 87591

== ENCOUNTER 2024-06-21 09:33 | Day surgery (SDC) | payer OTHER ==
[~2024-06-21] VITALS: Ht 190.5 cm; Wt 85.7 kg
[~2024-06-21 09:33] MED LIST changes: +INSULANPEN SC; +Lactated Ringer's 1,000 ML IV ONE; +propofoL 50 ML IV ONE
[2024-06-21] MEDS ORDERED: Lactated Ringer's 1,000 ML IV ONE (11:15)
[2024-06-21] MEDS ORDERED: Midazolam HCL 1 MG/ML 5MLVIAL ONE (11:35)
[2024-06-21 12:35] VITALS: BP 99/65
== END 2024-06-21 12:43 | disposition home or self-care (01) ==
LOC: ORSCSDS 09:33
PROVIDERS: Internal Medicine Gastroenterology
PROC: 0DB98ZX Excision of Duodenum, Via Natural or Artificial Opening Endoscopic, Diagnostic (ICD-10-PCS; principal; 2024-06-21 11:15)
PROC: 0DB68ZX Excision of Stomach, Via Natural or Artificial Opening Endoscopic, Diagnostic (ICD-10-PCS; principal; 2024-06-21 11:15)
DX: K90.0 Celiac disease (principal); B96.81 Helicobacter pylori [H. pylori] as the cause of diseases classified elsewhere; K29.70 Gastritis, unspecified, without bleeding; E10.8 Type 1 diabetes mellitus with unspecified complications; E78.5 Hyperlipidemia, unspecified; K92.1 Melena; F17.210 Nicotine dependence, cigarettes, uncomplicated; Z79.899 Other long term (current) drug therapy
CPT/HCPCS: 82947; 88305; 88341; 88342; J2250; J2704; J7120

== ENCOUNTER 2024-09-07 17:01 | Observation (INO) | payer OTHER ==
[~2024-09-07] VITALS: Ht 190.5 cm; Wt 83.8 kg
[~2024-09-07 17:01] MED LIST changes: -Lactated Ringer's 1,000 ML IV ONE; -propofoL 50 ML IV ONE
[2024-09-07] MEDS ORDERED: Lactated Ringer's 1,000 ML IV ONE ×2 (17:15→19:15)
[2024-09-07 17:27] LABS: Source, Urine Clean Catch
[2024-09-07 17:28] LABS: Base Excess Venous 1.8 mmol/L; Bicarbonate Venous 27.1 mmol/L (24.0-30.0); PCO2 Venous 27.2 mmHg (38-42); pH Blood Venous 7.55 (7.34-7.37)
[2024-09-07 17:31] LABS: BASOPHILS ABSOLUTE AUTO 0.09 K/mm3 (0.00-0.23); BASOPHILS PERCENT AUTO 1 % (0-2); EOSINOPHILS PERCENT AUTO 0 % (0-6); Hematocrit 42.6 % (37.0-53.0); Hemoglobin 14.4 g/dL (13.5-17.5); IMMATURE GRAN ABSOLUTE AUTO 0.06 K/mm3 (0.00-0.10); IMMATURE GRAN PERCENT AUTO 0 % (0-1); LYMPHOCYTES ABSOLUTE AUTO 1.12 K/mm3 (0.84-5.20); LYMPHOCYTES PERCENT AUTO 8 % (21-46); MONOCYTES PERCENT AUTO 6 % (4-13); Mean Corpuscular HGB 30.1 pg (26.0-34.0); Mean Corpuscular HGB Conc 33.8 g/dL (31.5-36.5); Mean Corpuscular Volume 89 fL (80-100); Mean Platelet Volume 10.3 fL (9.1-12.4); NEUTROPHILS ABSOLUTE AUTO 12.16 K/mm3 (1.96-9.15); NEUTROPHILS PERCENT AUTO 85 % (41-73); Platelet Count 337 K/mm3 (150-400); RDW Standard Deviation 48.9 fL (35.1-46.3); Red Blood Cell Count 4.79 M/mm3 (4.30-5.90); White Blood Cell Count 14.33 K/mm3 (4.00-11.30)
[2024-09-07 17:34] LABS: Appearance, Urine Clear (Clear); Bilirubin, Urine Neg (Neg); Blood, Urine 3+ (Neg); Color, Urine Yellow (P-Yellow); Glucose Qualitative, Urine 4+ (Neg); Ketones, Urine 4+ (Neg); Leukocyte Esterase, Urine Neg (Neg); Nitrite, Urine Neg (Neg); Protein, Urine 3+ (Neg); Urobilinogen, Urine NORM (Normal)
[2024-09-07 17:42] LABS: Bacteria Few /hpf; Squamous Epithelial Cells Not Seen /hpf (Few)
[2024-09-07 17:47] LABS: U Amphetamine Screen Not Detected; U Barbituate Screen Not Detected; U Benzodiazapine Screen Not Detected; U Buprenorphine Screen Not Detected; U Cannabinoids Screen DETECTED; U Cocaine Screen Not Detected; U Methadone Screen Not Detected; U Methamphetamine Screen DETECTED; U Opiates Screen Not Detected; U Oxycodone Screen Not Detected; U Phencyclidine Screen Not Detected
[2024-09-07 18:10] LABS: Ethanol (Alcohol), Blood, Med <3 mg/dL
[2024-09-07 18:17] LABS: Alanine Aminotransfer (ALT/SGP 57 U/L (12-78); Albumin, Blood 3.1 g/dL (3.4-5.0); Albumin/Globulin Ratio 0.8 (0.8-1.8); Alk Phos 99 U/L (50-136); Anion Gap 14 mmol/L (3-11); Aspartate Aminotrans (AST/SGOT 31 U/L (12-37); Beta-hydroxybutyrate 31.5 mg/dL (0.2-2.8); Bilirubin, Total 0.7 mg/dL (0.1-1.0); Blood Urea Nitrogen 15 mg/dL (8-24); Bun/Creatinine Ratio 16.6 (12.0-20.0); CO2, Blood 24 mmol/L (21-32); Chloride, Blood 102 mmol/L (98-108); Globulin, Blood 4.1 g/dL (2.2-4.0); Glomerular Filtration Rate 108 (60-); Glucose, Blood 345 mg/dL (70-99); Potassium, Blood 4.1 mmol/L (3.5-5.5); Sodium, Blood 136 mmol/L (136-145); Total Protein, Blood 7.2 g/dL (6.4-8.2)
[2024-09-07] MEDS ORDERED: Haloperidol Lactate Inj. 5 MG/ML Injection IV ONE (18:35)
[2024-09-07] MEDS ORDERED: Insulin Regular 100 Unit/ML 1ML Dose IV ONE (21:15)
[2024-09-08 00:41] LABS: Base Excess Venous -6.7 mmol/L; Bicarbonate Venous 19.8 mmol/L (24.0-30.0); PCO2 Venous 33.6 mmHg (38-42); pH Blood Venous 7.36 (7.34-7.37)
[2024-09-08] MEDS ORDERED: Ondansetron HCl 2 MG / ML 2ML Vial IV PRN (00:50)
[2024-09-08] MEDS ORDERED: Lactated Ringer's 1,000 ML IV SCH ×3 (00:50→03:00)
[2024-09-08 02:28] LABS: BASOPHILS ABSOLUTE AUTO 0.07 K/mm3 (0.00-0.23); BASOPHILS PERCENT AUTO 0 % (0-2); EOSINOPHILS PERCENT AUTO 0 % (0-6); Hematocrit 43.4 % (37.0-53.0); Hemoglobin 14.2 g/dL (13.5-17.5); IMMATURE GRAN ABSOLUTE AUTO 0.13 K/mm3 (0.00-0.10); IMMATURE GRAN PERCENT AUTO 1 % (0-1); LYMPHOCYTES ABSOLUTE AUTO 1.31 K/mm3 (0.84-5.20); LYMPHOCYTES PERCENT AUTO 6 % (21-46); MONOCYTES ABSOLUTE AUTO 1.32 K/mm3 (0.16-1.47); MONOCYTES PERCENT AUTO 6 % (4-13); Mean Corpuscular HGB 30.3 pg (26.0-34.0); Mean Corpuscular HGB Conc 32.7 g/dL (31.5-36.5); Mean Corpuscular Volume 93 fL (80-100); Mean Platelet Volume 10.7 fL (9.1-12.4); NEUTROPHILS PERCENT AUTO 87 % (41-73); Platelet Count 377 K/mm3 (150-400); RDW Coefficient Variation 15.7 % (11.7-14.2); RDW Standard Deviation 52.6 fL (35.1-46.3); Red Blood Cell Count 4.69 M/mm3 (4.30-5.90); White Blood Cell Count 22.53 K/mm3 (4.00-11.30)
[2024-09-08 02:56] LABS: Albumin/Globulin Ratio 0.8 (0.8-1.8); Bilirubin, Total 0.6 mg/dL (0.1-1.0); Bun/Creatinine Ratio 19.3 (12.0-20.0); Calcium, Blood 8.1 mg/dL (8.5-10.1); Creatinine, Blood 1.09 mg/dL (0.60-1.20); Globulin, Blood 3.9 g/dL (2.2-4.0); Potassium, Blood 4.8 mmol/L (3.5-5.5); Total Protein, Blood 6.9 g/dL (6.4-8.2)
[2024-09-08] MEDS ORDERED: Insulin Regular 100 UNIT/ML 10ML Vial SC SCH (03:00)
[2024-09-08] MEDS ORDERED: Dextrose 50% 50 ML Syringe IV PRN (03:10)
[2024-09-08] MEDS ORDERED: Insulin Human Regular 100 UNIT in NS 100 ML IV SCH (03:20)
--- NOTE | 2024-09-08 06:20 | NUR ---
End of Shift Summary Pt arrived to unit approx 0200 , mom at bedside. Insulin infusion started per protocol , orders clarified with physician by charge nurse. No acute distress through shift, q1 blood sugar checks at this time. Mom left bedside at approx 0600. Patient remains asleep and VSS
[2024-09-08 06:43] LABS: Calcium, Blood 7.8 mg/dL (8.5-10.1); Creatinine, Blood 1.1 mg/dL (0.60-1.20); Potassium, Blood 3.6 mmol/L (3.5-5.5)
[2024-09-08 07:17] VITALS: BP 106/65
[2024-09-08] MEDS ORDERED: Insulin Human Lispro 100 Units/ML 3ML Syringe SC SCH (07:30)
--- NOTE | 2024-09-08 07:30 | NUR ---
PT UPDATE CALL PLACED TO DR. GARRETT REGARDING PT MORNING LABS AND BLOOD SUGAR CHECK. ORDERS TO DECREASE LR TO 150MLS/HR, AND DECREASE INSULIN TO 3UNITS/HR. CARE CONTINUES.
[2024-09-08 08:00] VITALS: BP 97/54
[2024-09-08 09:00] VITALS: BP 114/68
[2024-09-08] MEDS ORDERED: Insulin Glargine-Yfgn 100 Unit/mL 3 ML SYR SC SCH (09:00)
[2024-09-08] MEDS ORDERED: Enoxaparin 40 MG/0.4 ML SYR SC SCH (09:00)
--- NOTE | 2024-09-08 09:05 | NUR ---
PT UPDATE CBG 98, DR. BROWNING CALLED. ORDERS TO DECREASE LR TO 100MLS, PUT INSULIN ON SB AND RECHECK CBG Q30M X3. CARE CONTINUES.
--- NOTE | 2024-09-08 09:06 | NUR ---
ASSUMPTION OF CARE ASSUMED CARE OF PATIENT AT APPROXIMATELY 0700. PT RESTING IN BED, SLEEPING BUT AROUSABLE. PT ORIENTED X4, ANSWERS QUESTIONS APPROPRIATLEY, FOLLOWS DIRECTION WHEN PROMTPED AND IS ABLE TO MAKE HIS NEEDS KNOWN. PT MOVES EXTREMITIES EQUALLY BILATERALLY, REPOSITIONS SELF IN BED FOR COMFORT. PT DENIES PAIN. HR 100-110'S SINUS, MAP >65. PT ON RA, OXYGEN SATURATION >95%. ABDOMEN SOFT, BOWEL TONES ACTIVE THROUGHOUT, PT DENIES N/V. PT USES URINAL TO VOID. PIV IN PLACE TO LFA, RFA AND TROY, INSULIN PLACED ON SB FOR CBG OF 98. ORDERS RECEIVED TO STOP LR, ORDER DIET AND GIVE LONG ACTING INSULIN AFTER THE PATIENT HAS EATEN. BED IN LOWEST POSITION, CALL LIGHT WITHIN REACH, CARE CONTINUES.
[2024-09-08] MEDS ORDERED: Insulin Glargine-Yfgn 100 Unit/mL 3 ML SYR SC ONE (09:15)
[2024-09-08 11:01] LABS: Bun/Creatinine Ratio 17.6 (12.0-20.0); Calcium, Blood 7.8 mg/dL (8.5-10.1); Creatinine, Blood 1.08 mg/dL (0.60-1.20); Magnesium, Blood 1.9 mg/dL (1.6-2.4); Phosphorus, Blood 3.7 mg/dL (2.5-4.9); Potassium, Blood 4.3 mmol/L (3.5-5.5)
[2024-09-08] MEDS ORDERED: Insulin Pump Cartridge MISC SC SCH (11:25)
[2024-09-08] MEDS ORDERED: Insulin Human Lispro 100 Units/ML 3ML Syringe SC ONE (12:00)
--- NOTE | 2024-09-08 12:27 | NUR ---
PT UPDATE PT HOME INSULIN PUMP AND G7 MONITOR PLACED BY PATIENT. CARE CONTINUES.
[2024-09-08 13:49] VITALS: BP 116/74
== END 2024-09-08 14:40 | disposition home or self-care (01) ==
LOC: ER 17:01 → ICUE 17:02
PROVIDERS: Student in an Organized Health Care Education/Training Program; ADMIT Student in an Organized Health Care Education/Training Program
DX: E10.10 Type 1 diabetes mellitus with ketoacidosis without coma (principal); E10.65 Type 1 diabetes mellitus with hyperglycemia; D72.829 Elevated white blood cell count, unspecified; K21.9 Gastro-esophageal reflux disease without esophagitis; E78.5 Hyperlipidemia, unspecified; F17.210 Nicotine dependence, cigarettes, uncomplicated; Z79.4 Long term (current) use of insulin
CPT/HCPCS: 36415; 71045; 80048; 80053; 80320; 81001; 82010; 82803; 82947; 83690; 83735; 84100; 85025; 87086; 93005; 93010; 96361; 96372; 96374; 96375; 99285-25; G0378; J1630; J1650; J1815; J2405; J7120

== ENCOUNTER 2024-12-20 18:04 | Observation (INO) | payer OTHER ==
[~2024-12-20] VITALS: Ht 188 cm; Wt 83.1 kg
[2024-12-20] MEDS ORDERED: NS 1,000 ML IV SCH ×3 (18:15→23:20)
[2024-12-20 18:47] LABS: BASOPHILS ABSOLUTE AUTO 0.02 K/mm3 (0.00-0.23); BASOPHILS PERCENT AUTO 0 % (0-2); EOSINOPHILS ABSOLUTE AUTO 0.00 K/mm3 (0.00-0.68); EOSINOPHILS PERCENT AUTO 0 % (0-6); Hematocrit 48.6 % (37.0-53.0); Hemoglobin 16.5 g/dL (13.5-17.5); IMMATURE GRAN ABSOLUTE AUTO 0.09 K/mm3 (0.00-0.10); IMMATURE GRAN PERCENT AUTO 0 % (0-1); LYMPHOCYTES ABSOLUTE AUTO 1.26 K/mm3 (0.84-5.20); LYMPHOCYTES PERCENT AUTO 6 % (21-46); MONOCYTES ABSOLUTE AUTO 0.57 K/mm3 (0.16-1.47); MONOCYTES PERCENT AUTO 3 % (4-13); Mean Corpuscular HGB Conc 34.0 g/dL (31.5-36.5); Mean Corpuscular Volume 91 fL (80-100); NEUTROPHILS ABSOLUTE AUTO 18.29 K/mm3 (1.96-9.15); NEUTROPHILS PERCENT AUTO 91 % (41-73); NRBC ABSOLUTE 0.00 K/mm3 (0.00-0.02); NRBC Auto 0.0 /100 WBC (0.0-0.2); Platelet Count 351 K/mm3 (150-400); RDW Coefficient Variation 13.6 % (11.7-14.2); RDW Standard Deviation 45.5 fL (35.1-46.3)
[2024-12-20 18:48] LABS: pH Blood Venous 7.32 (7.34-7.37)
[2024-12-20] MEDS ORDERED: Haloperidol Lactate Inj. 5 MG/ML Injection IV ONE (19:00)
[2024-12-20 19:20] LABS: Alanine Aminotransfer (ALT/SGP 63.0 U/L (12-78); Albumin, Blood 3.4 g/dL (3.4-5.0); Albumin/Globulin Ratio 0.8 (0.8-1.8); Anion Gap 18.0 mmol/L (3-11); Aspartate Aminotrans (AST/SGOT 33.0 U/L (12-37); Bilirubin, Total 0.6 mg/dL (0.1-1.0); Blood Urea Nitrogen 34.0 mg/dL (8-24); CO2, Blood 21.0 mmol/L (21-32); Calcium, Blood 9.0 mg/dL (8.5-10.1); Chloride, Blood 97.0 mmol/L (98-108); Creatinine, Blood 1.31 mg/dL (0.60-1.20); Globulin, Blood 4.5 g/dL (2.2-4.0); Glucose, Blood 359.0 mg/dL (70-99); Magnesium, Blood 2.1 mg/dL (1.6-2.4); Phosphorus, Blood 5.3 mg/dL (2.5-4.9); Potassium, Blood 4.1 mmol/L (3.5-5.5); Sodium, Blood 132.0 mmol/L (136-145); Total Protein, Blood 7.9 g/dL (6.4-8.2)
[2024-12-20 20:16] LABS: Influenza A, PCR NEGATIVE (NEGATIVE); Influenza B, PCR NEGATIVE (NEGATIVE); Resp Syncytial Virus, PCR NEGATIVE (NEGATIVE); SARS-Cov-2 (COVID-19) PCR, MMC NEGATIVE (NEGATIVE)
[2024-12-20 21:34] LABS: Source, Urine Clean Catch
[2024-12-20 21:38] LABS: Bilirubin, Urine Neg (Neg); Glucose Qualitative, Urine 4+ (Neg); Ketones, Urine 4+ (Neg); Leukocyte Esterase, Urine Neg (Neg); Protein, Urine 4+ (Neg); Specific Gravity, Urine 1.025 (1.003-1.022); Urobilinogen, Urine NORM (Normal)
[2024-12-20 21:43] LABS: Color, Urine Yellow (P-Yellow)
[2024-12-20 21:58] LABS: Red Blood Cells, Urine 0-2 /hpf (0-2); White Blood Cells, Urine Not Seen /hpf (0-5)
[2024-12-20] MEDS ORDERED: Insulin Human Regular 100 UNIT in NS 100 ML IV SCH (22:45)
[2024-12-20] MEDS ORDERED: FLU VACC TS2025-26(6MOS UP)/PF 45 MCG/0.5 ML SYRINGE IM SCH (23:25)
[2024-12-20] MEDS ORDERED: Ondansetron HCl 2 MG / ML 2ML Vial IV PRN (23:25)
[2024-12-20 23:52] LABS: Anion Gap 8 mmol/L (3-11); Blood Urea Nitrogen 28 mg/dL (8-24); CO2, Blood 26 mmol/L (21-32); Calcium, Blood 8.0 mg/dL (8.5-10.1); Chloride, Blood 105 mmol/L (98-108); Creatinine, Blood 1.10 mg/dL (0.60-1.20); Ethanol (Alcohol), Blood, Med <3 mg/dL; Glucose, Blood 233 mg/dL (70-99); Potassium, Blood 4.2 mmol/L (3.5-5.5); Sodium, Blood 135 mmol/L (136-145)
[2024-12-20] MEDS ORDERED: Enoxaparin 40 MG/0.4 ML SYR SC SCH (23:55)
[2024-12-21] VITALS (8 sets, daily range): BP systolic 124–172; BP diastolic 80–104
[2024-12-21] MEDS ORDERED: Insulin Glargine 100 Unit/ML 3 ML SYR SC SCH
[2024-12-21] MEDS ORDERED: Prochlorperazine Edisylate 10 mg Vial IV PRN (00:45)
[2024-12-21 01:30] LABS: U Amphetamine Screen DETECTED; U Barbiturate Screen Not Detected; U Benzodiazapine Screen Not Detected; U Methamphetamine Screen DETECTED
[2024-12-21 01:31] LABS: U Buprenorphine Screen Not Detected; U Cannabinoids Screen DETECTED; U Cocaine Screen Not Detected; U Methadone Screen Not Detected; U Opiates Screen Not Detected; U Oxycodone Screen Not Detected; U Phencyclidine Screen Not Detected
[2024-12-21] MEDS ORDERED: Pantoprazole Sodium 40 MG Injection IV SCH ×2 (02:36→21:00)
[2024-12-21 04:20] LABS: BASOPHILS ABSOLUTE AUTO 0.07 K/mm3 (0.00-0.23); BASOPHILS PERCENT AUTO 0 % (0-2); EOSINOPHILS ABSOLUTE AUTO 0.00 K/mm3 (0.00-0.68); EOSINOPHILS PERCENT AUTO 0 % (0-6); Hematocrit 50.3 % (37.0-53.0); Hemoglobin 17.3 g/dL (13.5-17.5); IMMATURE GRAN ABSOLUTE AUTO 0.09 K/mm3 (0.00-0.10); IMMATURE GRAN PERCENT AUTO 0 % (0-1); LYMPHOCYTES ABSOLUTE AUTO 2.36 K/mm3 (0.84-5.20); LYMPHOCYTES PERCENT AUTO 10 % (21-46); MONOCYTES ABSOLUTE AUTO 1.75 K/mm3 (0.16-1.47); MONOCYTES PERCENT AUTO 7 % (4-13); Mean Corpuscular HGB Conc 34.4 g/dL (31.5-36.5); Mean Corpuscular Volume 91 fL (80-100); NEUTROPHILS ABSOLUTE AUTO 19.38 K/mm3 (1.96-9.15); NEUTROPHILS PERCENT AUTO 82 % (41-73); NRBC ABSOLUTE 0.00 K/mm3 (0.00-0.02); NRBC Auto 0.0 /100 WBC (0.0-0.2); Platelet Count 324 K/mm3 (150-400); RDW Coefficient Variation 13.9 % (11.7-14.2); RDW Standard Deviation 46.3 fL (35.1-46.3)
[2024-12-21 04:46] LABS: Alanine Aminotransfer (ALT/SGP 57.0 U/L (12-78); Albumin, Blood 3.2 g/dL (3.4-5.0); Albumin/Globulin Ratio 0.8 (0.8-1.8); Anion Gap 9.0 mmol/L (3-11); Aspartate Aminotrans (AST/SGOT 34.0 U/L (12-37); Bilirubin, Total 0.6 mg/dL (0.1-1.0); Blood Urea Nitrogen 27.0 mg/dL (8-24); CO2, Blood 27.0 mmol/L (21-32); Calcium, Blood 8.1 mg/dL (8.5-10.1); Chloride, Blood 105.0 mmol/L (98-108); Creatinine, Blood 1.11 mg/dL (0.60-1.20); Globulin, Blood 4.2 g/dL (2.2-4.0); Glucose, Blood 169.0 mg/dL (70-99); Potassium, Blood 4.5 mmol/L (3.5-5.5); Sodium, Blood 136.0 mmol/L (136-145); Total Protein, Blood 7.4 g/dL (6.4-8.2)
--- NOTE | 2024-12-21 08:12 | NUR ---
SHIFT SUMMARY: PT ARRIVES TO PCU 20 FROM THE ER VIA GURNEY AROUND 0113. PT AMBULATED TO HOSPITAL BED WITH JUST A SBA. PT IS LETHARGIC, AWAKES WITH PHYSICAL STIMULI. PT ORIENTED TO ROOM AND CALL LIGHT. PER PT'S GIRLFRIEND AT BEDSIDE, PT PREFERS TO USE THE NAME 'HANDY'. PT IS NOT ABLE TO STAY AWAKE, AND THIS RN WAS NOT ABLE TO COMPLETE HIS ADMIT DOCUMENTATION. PT DOES HAVE AN INSULIN PUMP, BUT IS NOT ABLE TO TELL THIS RN OF THE SETTINGS. HYPERTENSIVE, HR IS TACHY, ON RA SPO2 >95%, AFEBRILE. ST 110'S-120'S. PT WAS NPO, BUT ASKING FOR FOOD, SO CONS CARB DIET ORDERED. NO N/V THIS SHIFT. NOOB THIS SHIFT. DUE TO VOID. NO BM THIS SHIFT. PT IS INDEPENDENT AT BASELINE. BED IN LOWEST POSITION, CALL LIGHT WITHIN REACH. BED ALARM SET FOR PT'S SAFETY UNTIL MORE ALERT.
[2024-12-21 09:02] LABS: Anion Gap 5.0 mmol/L (3-11); Blood Urea Nitrogen 25.0 mg/dL (8-24); CO2, Blood 28.0 mmol/L (21-32); Calcium, Blood 7.8 mg/dL (8.5-10.1); Chloride, Blood 107.0 mmol/L (98-108); Creatinine, Blood 1.17 mg/dL (0.60-1.20); Glucose, Blood 95.0 mg/dL (70-99); Potassium, Blood 4.4 mmol/L (3.5-5.5); Sodium, Blood 136.0 mmol/L (136-145)
[2024-12-21] MEDS ORDERED: ATOR10 PO (10:36)
[2024-12-21] MEDS ORDERED: HydrALAZINE HCl 20 MG / ML 1ML Vial IV PRN (10:55)
[2024-12-21] MEDS ORDERED: LEVSOD75 PO (11:02)
[2024-12-21] MEDS ORDERED: HUMALOG100 UNIT/1 (11:03)
[2024-12-21] MEDS ORDERED: NS 1,000 ML IV SCH (11:05)
--- NOTE | 2024-12-21 14:55 | NUR ---
SHIFT SUMMARY PATIENT SLEEPING BUT CAN EASILY BE WOKEN UP AN ORIENTED X4. HE IS ABLE TO MAKE NEEDS KNOWN, ABLE TO INDEPENDENTLY WALK TO THE RESTROOM HE IS ABLE TO VOID. HE DENIES CP OR SOB. HE DENIES NAUSEA OR ABD PAIN. HE WAS ABLE TO EAT HIS BREAKFAST AND STATED HE HAD SOME NAUSEA BRIEFLY AFTER THAT CLEARED ON ITS OWN. HE REFUSED TO DO HIS ADMISSION ASSESSMENT AND JUST WANTS TO GO BACK TO SLEEP ATTEMPTED MULTIPLE TIMES. DR PURVIS SAID IT WAS OK TO USE PATIENTS OWN INSULIN PUMP. PATIENT CHANGED TO MEDICAL REPORT GIVEN.
[2024-12-21] MEDS ORDERED: Insulin Pump Cartridge MISC SC SCH (16:40)
--- NOTE | 2024-12-21 17:22 | NUR ---
THIS RN ASSUMED CARE OF PT AFTER TRANSFER FROM PCU. PT A/Ox4, INDEPENDENT IN ROOM. PT DENIES PAIN AT THIS TIME. REPORTS NAUSEA WELL CONTROLLED. NORMAL SALINE RUNNING 125 ML/HR - TO BE DC'D TOMORROW AT 0900. ORDERS ENTERED FOR PT TO USE OWN INSULIN PUMP AND PAPERWORK SIGNED BY PT AND THIS RN. PT DENIES ANY CONCERNS AND APPEARS COMFORTABLE. USING CALL SYSTEM APPROPRIATELY. PT DENIES ANY NEEDS AT THIS TIME. PT CURRENTLY RESTING IN BED WITH BED IN LOWEST POSITION AND CALL LIGHT IN REACH.
[2024-12-22 01:17] VITALS: BP 154/94
[2024-12-22 04:20] VITALS: BP 158/98
[2024-12-22 04:41] LABS: BASOPHILS ABSOLUTE AUTO 0.05 K/mm3 (0.00-0.23); BASOPHILS PERCENT AUTO 0 % (0-2); EOSINOPHILS ABSOLUTE AUTO 0.00 K/mm3 (0.00-0.68); EOSINOPHILS PERCENT AUTO 0 % (0-6); Hematocrit 44.2 % (37.0-53.0); Hemoglobin 15.1 g/dL (13.5-17.5); IMMATURE GRAN ABSOLUTE AUTO 0.07 K/mm3 (0.00-0.10); IMMATURE GRAN PERCENT AUTO 0 % (0-1); LYMPHOCYTES ABSOLUTE AUTO 2.36 K/mm3 (0.84-5.20); LYMPHOCYTES PERCENT AUTO 13 % (21-46); MONOCYTES ABSOLUTE AUTO 1.28 K/mm3 (0.16-1.47); MONOCYTES PERCENT AUTO 7 % (4-13); Mean Corpuscular HGB Conc 34.2 g/dL (31.5-36.5); Mean Corpuscular Volume 89 fL (80-100); NEUTROPHILS ABSOLUTE AUTO 14.12 K/mm3 (1.96-9.15); NEUTROPHILS PERCENT AUTO 79 % (41-73); NRBC ABSOLUTE 0.00 K/mm3 (0.00-0.02); NRBC Auto 0.0 /100 WBC (0.0-0.2); Platelet Count 268 K/mm3 (150-400); RDW Coefficient Variation 13.7 % (11.7-14.2); RDW Standard Deviation 44.6 fL (35.1-46.3)
[2024-12-22 04:50] LABS: Alanine Aminotransfer (ALT/SGP 47.0 U/L (12-78); Albumin, Blood 2.6 g/dL (3.4-5.0); Albumin/Globulin Ratio 0.7 (0.8-1.8); Anion Gap 8.0 mmol/L (3-11); Aspartate Aminotrans (AST/SGOT 31.0 U/L (12-37); Bilirubin, Total 0.5 mg/dL (0.1-1.0); Blood Urea Nitrogen 14.0 mg/dL (8-24); CO2, Blood 27.0 mmol/L (21-32); Calcium, Blood 7.2 mg/dL (8.5-10.1); Chloride, Blood 103.0 mmol/L (98-108); Creatinine, Blood 0.9 mg/dL (0.60-1.20); Globulin, Blood 3.7 g/dL (2.2-4.0); Glucose, Blood 121.0 mg/dL (70-99); Potassium, Blood 4.6 mmol/L (3.5-5.5); Sodium, Blood 133.0 mmol/L (136-145); Total Protein, Blood 6.3 g/dL (6.4-8.2)
--- NOTE | 2024-12-22 05:19 | NUR ---
SHIFT SUMMARY PATIENT ADMITTED FOR DIABETIC GASTEROPARESIS. VSS. NS RUNNING AT 125ML/HR. PATIENT RESTING COMFORTABLY THROUGHOUT THE SHIFT. PATIENT INDEPENDENT IN ROOM. BED IN LOWEST POSITION FOR SAFETY. CALL LIGHT WITHIN REACH.
[2024-12-22 07:57] VITALS: BP 166/97
--- NOTE | 2024-12-22 09:18 | NUR ---
PER DR. PURVIS ADMINISTER HYDRALAZINE AND COMPAZINE NOW FOR N/V AND HTN. IN APPROX ONE HOUR IF SBP STILL ABOVE 130 ADMINISTER PO METOPROLOL. HYUN ALSO ORDERED TO CONTINUE FLUIDS AT THIS TIME @ 125 ML/HR. PT CURRENTLY RESTING IN BED WITH BED IN LOWEST POSITION AND CALL LIGHT IN REACH.
[2024-12-22] MEDS ORDERED: NS 1,000 ML IV SCH (09:20)
[2024-12-22 10:10] VITALS: BP 167/98
[2024-12-22 10:47] VITALS: BP 151/96
[2024-12-22 12:38] VITALS: BP 111/86
[2024-12-22] MEDS ORDERED: METO10 PO (12:56)
[2024-12-22] MEDS ORDERED: OMEP20ER PO (12:57)
[2024-12-22] MEDS ORDERED: METOPROLOL TART50 M6 PO (12:57)
--- NOTE | 2024-12-22 13:13 | NUR ---
DISCHARGE PT REQUESTED TO BE DISCHARGED, PT DISCHARGED HOME. NEW RX FAXED TO [facility] PER PT REQUEST. PT, GIRLFRIEND, AND MOTHER PRESENT DURING DISCHARGE EDUCATION/INSTRUCTION. IV REMOVED AND SITE APPEARS WNL. PT ABLE TO AMBULATE INDEPENDENTLY TO ELEVATOR. DENIED WANT FOR WC. PT REPORTS HAVING ALL BELONGINGS.
== END 2024-12-22 13:10 | disposition home or self-care (01) ==
LOC: ER 18:04 → PCU 18:05 → MEDS 12-21 14:42
PROVIDERS: Internal Medicine; Student in an Organized Health Care Education/Training Program; ADMIT Internal Medicine
DX: E10.10 Type 1 diabetes mellitus with ketoacidosis without coma (principal); E86.0 Dehydration; E78.5 Hyperlipidemia, unspecified; K21.9 Gastro-esophageal reflux disease without esophagitis; F17.210 Nicotine dependence, cigarettes, uncomplicated; I10 Essential (primary) hypertension; E03.9 Hypothyroidism, unspecified; D72.829 Elevated white blood cell count, unspecified; N17.9 Acute kidney failure, unspecified; Z88.8 Allergy status to other drugs, medicaments and biological substances; Z79.890 Hormone replacement therapy; Z79.899 Other long term (current) drug therapy
CPT/HCPCS: 36415; 74177; 80048; 80053; 80320; 81001; 82010; 82803; 82947; 83605; 83690; 83735; 83880; 84100; 84484; 85025; 87637; 90472; 93005; 93010; 96372; 96374; 96375; 96375-59; 96376; 99284-25; A9270; G0378; J0360; J0780; J1630; J1650; J1815; J2405; J2470; J3480; J7030; Q9967

== ENCOUNTER 2025-01-01 17:10 | Emergency (ER) | payer OTHER ==
[~2025-01-01] VITALS: Ht 190.5 cm; Wt 81.7 kg
[~2025-01-01 17:10] MED LIST changes: +ATOR10 PO; +HUMALOG100 UNIT/1; +LEVSOD75 PO; +METOPROLOL TART50 M6 PO; +OMEP20ER PO
[2025-01-01] MEDS ORDERED: Ondansetron HCl 2 MG / ML 2ML Vial IV ONE ×2 (17:25→23:10)
[2025-01-01 17:55] LABS: BASOPHILS ABSOLUTE AUTO 0.13 K/mm3 (0.00-0.23); BASOPHILS PERCENT AUTO 1 % (0-2); EOSINOPHILS ABSOLUTE AUTO 0.03 K/mm3 (0.00-0.68); EOSINOPHILS PERCENT AUTO 0 % (0-6); Hematocrit 48.6 % (37.0-53.0); Hemoglobin 16.9 g/dL (13.5-17.5); IMMATURE GRAN ABSOLUTE AUTO 0.08 K/mm3 (0.00-0.10); IMMATURE GRAN PERCENT AUTO 0 % (0-1); LYMPHOCYTES ABSOLUTE AUTO 1.85 K/mm3 (0.84-5.20); LYMPHOCYTES PERCENT AUTO 9 % (21-46); MONOCYTES ABSOLUTE AUTO 0.75 K/mm3 (0.16-1.47); MONOCYTES PERCENT AUTO 4 % (4-13); Mean Corpuscular HGB Conc 34.8 g/dL (31.5-36.5); Mean Corpuscular Volume 87 fL (80-100); NEUTROPHILS ABSOLUTE AUTO 17.24 K/mm3 (1.96-9.15); NEUTROPHILS PERCENT AUTO 86 % (41-73); NRBC ABSOLUTE 0.00 K/mm3 (0.00-0.02); NRBC Auto 0.0 /100 WBC (0.0-0.2); Platelet Count 366 K/mm3 (150-400); RDW Coefficient Variation 13.5 % (11.7-14.2); RDW Standard Deviation 43.3 fL (35.1-46.3)
[2025-01-01 18:26] LABS: Alanine Aminotransfer (ALT/SGP 57.0 U/L (12-78); Albumin, Blood 3.3 g/dL (3.4-5.0); Albumin/Globulin Ratio 0.8 (0.8-1.8); Anion Gap 11.0 mmol/L (3-11); Aspartate Aminotrans (AST/SGOT 51.0 U/L (12-37); Bilirubin, Total 0.7 mg/dL (0.1-1.0); Blood Urea Nitrogen 16.0 mg/dL (8-24); CO2, Blood 25.0 mmol/L (21-32); Calcium, Blood 8.9 mg/dL (8.5-10.1); Chloride, Blood 101.0 mmol/L (98-108); Creatinine, Blood 1.14 mg/dL (0.60-1.20); Globulin, Blood 4.1 g/dL (2.2-4.0); Glucose, Blood 182.0 mg/dL (70-99); Potassium, Blood 3.7 mmol/L (3.5-5.5); Sodium, Blood 133.0 mmol/L (136-145); Total Protein, Blood 7.4 g/dL (6.4-8.2)
[2025-01-01] MEDS ORDERED: FentaNYL Citrate 50 MCG/ML 2 ML Injection IV ONE (19:10)
[2025-01-01] MEDS ORDERED: Pantoprazole Sodium 40 MG Injection IV ONE (19:10)
[2025-01-01] MEDS ORDERED: Prochlorperazine Edisylate 10 mg Vial IV ONE (20:15)
[2025-01-01] MEDS ORDERED: RX Prepack 2 Tabs Ondansetron ODT 4MG UD ONE (23:25)
[2025-01-01 23:30] VITALS: BP 139/77
== END 2025-01-01 23:43 | disposition home or self-care (01) ==
LOC: ER 17:10
PROVIDERS: Student in an Organized Health Care Education/Training Program
DX: E10.65 Type 1 diabetes mellitus with hyperglycemia (principal); F15.90 Other stimulant use, unspecified, uncomplicated; D72.829 Elevated white blood cell count, unspecified; E10.43 Type 1 diabetes mellitus with diabetic autonomic (poly)neuropathy; K31.84 Gastroparesis; K21.9 Gastro-esophageal reflux disease without esophagitis; E78.5 Hyperlipidemia, unspecified; F17.200 Nicotine dependence, unspecified, uncomplicated; Z79.4 Long term (current) use of insulin; Z79.890 Hormone replacement therapy; Z79.899 Other long term (current) drug therapy; Z88.8 Allergy status to other drugs, medicaments and biological substances
CPT/HCPCS: 80053; 82010; 82947; 83690; 85025; 93005; 93010; 96374; 96375; 99284-25; A9270; J0780; J2405; J2470; J3010; J7120